=== PATIENT | male | born 1970 | race Hispanic/Latino ===

== ENCOUNTER 2020-02-05 04:15 | Inpatient (IN) | payer OTHER ==
[~2020-02-05] VITALS: Ht 167.6 cm; Wt 68.5 kg
[2020-02-05] MEDS ORDERED: SODIUM CHLORIDE 0.9% 500ML 500 ML IV ONE (04:57)
[2020-02-05 05:37] LABS: BASOPHILS % (AUTO) 1.3 % (0.0-5.0); EOSINOPHILS % (AUTO) 2.6 % (0.0-8.0); HEMATOCRIT 40.8 % (42-54); LYMPHOCYTES % (AUTO) 28.1 % (21.0-51.0); MEAN CORPUSCULAR HEMOGLOBIN 30.8 pg (27.0-33.0); MEAN CORPUSCULAR HGB CONC 32.8 g/dL (32.0-36.0); MEAN CORPUSCULAR VOLUME 93.8 fL (79-99); MONOCYTES % (AUTO) 10.3 % (3.0-13.0); NEUTROPHILS % (AUTO) 57.3 % (40.0-77.0); PLATELET COUNT (AUTO) 175 K/uL (130-400); RED BLOOD CELL COUNT(AUTO) 4.35 MIL/uL (4.50-6.20); RED CELL DISTRIBUTION WIDTH 12.3 % (11.0-15.5); WHITE BLOOD COUNT (AUTO) 5.3 K/uL (4.8-10.8)
[2020-02-05 05:46] LABS: CREATININE 1.2 mg/dL (0.5-1.5); POTASSIUM 3.6 mmol/L (3.5-5.1)
[2020-02-05 06:00] LABS: ALBUMIN 3.3 g/dL (3.5-5.0); BILIRUBIN,TOTAL 0.3 mg/dL (0.2-1.0); INR 0.94 (0.85-1.15); PARTIAL THROMBOPLASTIN TIME 28.9 SEC (26.3-35.5); PROTHROMBIN TIME 10.2 SEC (9.6-11.6)
[2020-02-05] MEDS ORDERED: M.V.I. IV [ADULT] 10 ML, THIAMINE HCL 100 MG, FOLIC ACID 1 MG in SODIUM CHLORIDE 0.9% 1... IV SCH (09:15)
[2020-02-05] MEDS ORDERED: FLUORESCEIN SODIUM 1 STRIP STRIP ONE (09:24)
[2020-02-05] MEDS ORDERED: TETRACAINE HCL 0.5% 4 ML OPHTH SOLN ONE (09:25)
[2020-02-05] MEDS ORDERED: ERYTHROMYCIN BASE 0.5% OPHTH OINT 1 GM TUBE ONE (10:00)
[2020-02-05] MEDS ORDERED: IOHEXOL-350 50ML VIAL IV ONE (10:45)
[2020-02-05] MEDS ORDERED: ZOSYN 3.375GM+NS 50ML 50 ML IV ONE (12:41)
[2020-02-05] MEDS ORDERED: ACETAMINOPHEN 325 MG TAB PO PRN ×3 (13:30→16:45)
[2020-02-05] MEDS ORDERED: NITROGLYCERIN 0.4 MG SL TAB SL PRN ×2 (13:30→16:45)
[2020-02-05] MEDS ORDERED: CHLORDIAZEPOXIDE HCL 25 MG CAP PO PRN ×2 (13:30→16:45)
[2020-02-05] MEDS ORDERED: SODIUM CHLORIDE 0.9% 1000ML 1,000 ML IV SCH ×2 (13:30)
[2020-02-05] MEDS ORDERED: ONDANSETRON HCL 4 MG/2 ML VIAL IV PRN ×4 (13:30→16:45)
[2020-02-05] MEDS ORDERED: LACTULOSE 20 GM/30 ML UDCUP PO PRN ×3 (13:30→16:45)
[2020-02-05] MEDS ORDERED: LORAZEPAM 2 MG/ML 1 ML VIAL IVP PRN ×2 (13:30→16:45)
[2020-02-05] MEDS ORDERED: PHARMACY COMMUNICATION MISC PRN ×2 (13:30→16:45)
[2020-02-05] MEDS ORDERED: TETANUS/DIPHTHERIA TOXOID [ADULT] 0.5 ML VIAL IM ONE (13:38)
[2020-02-05 13:41] LABS: PHOSPHORUS 4.4 mg/dL (2.5-4.9)
[2020-02-05] MEDS ORDERED: VANCOMYCIN 1GM+NS 250ML 250 ML IV SCH (14:15)
[2020-02-05] MEDS ORDERED: VANCOMYCIN 1GM+NS 250ML 250 ML IV ONE (14:50)
[2020-02-05] MEDS ORDERED: ERYTHROMYCIN BASE 0.5% OPHTH OINT 1 GM TUBE OU SCH (16:45)
[2020-02-05] MEDS: SODIUM CHLORIDE 0.9% 1000ML 1,000 ML IV SCH (16:45)
[2020-02-05] MEDS: THIAMINE HCL 100 MG, FOLIC ACID 1 MG, M.V.I. IV [ADULT] 10 ML in SODIUM CHLORIDE 0.9% 1... IV SCH (17:00)
[2020-02-05 18:00] VITALS: BP 143/87
[2020-02-05 20:00] VITALS: BP 129/94
[2020-02-05] MEDS: ERYTHROMYCIN BASE 0.5% OPHTH OINT 1 GM TUBE OU SCH (20:49)
[2020-02-05] MEDS ORDERED: ZOSYN 3.375GM+NS 50ML 50 ML IV SCH ×3 (21:00)
[2020-02-05] MEDS ORDERED: FAMOTIDINE 20MG TAB 20 MG TAB PO SCH ×2 (21:00)
[2020-02-06] VITALS: BP 137/92
[2020-02-06] MEDS: ERYTHROMYCIN BASE 0.5% OPHTH OINT 1 GM TUBE OU SCH ×4 (01:34→12:23)
[2020-02-06] MEDS: SODIUM CHLORIDE 0.9% 1000ML 1,000 ML IV SCH ×3 (01:34→12:23)
[2020-02-06 04:00] VITALS: BP 132/83
--- NOTE | 2020-02-06 05:27 | NUR ---
patient is alert and oriented times 2. he has been asleep all night. the first banana bag was started in the ER and finished by me ortega at midnight.
[2020-02-06] MEDS ORDERED: CEFTRIAXONE SODIUM 1 GM ONE (05:35)
[2020-02-06 06:27] LABS: BASOPHILS % (AUTO) 1.3 % (0.0-5.0); EOSINOPHILS % (AUTO) 2.9 % (0.0-8.0); HEMATOCRIT 39.3 % (42-54); LYMPHOCYTES % (AUTO) 24.2 % (21.0-51.0); MEAN CORPUSCULAR HGB CONC 32.6 g/dL (32.0-36.0); MEAN CORPUSCULAR VOLUME 95.2 fL (79-99); MONOCYTES % (AUTO) 12.2 % (3.0-13.0); PLATELET COUNT (AUTO) 158 K/uL (130-400); RED BLOOD CELL COUNT(AUTO) 4.13 MIL/uL (4.50-6.20); RED CELL DISTRIBUTION WIDTH 12.1 % (11.0-15.5); WHITE BLOOD COUNT (AUTO) 5.6 K/uL (4.8-10.8)
[2020-02-06 06:35] LABS: ALANINE AMINOTRANSFERASE 71 U/L (12-78); ALBUMIN 2.7 g/dL (3.5-5.0); ASPARTATE AMINOTRANSFERASE 115 U/L (10-37); BILIRUBIN,TOTAL 0.7 mg/dL (0.2-1.0); CARBON DIOXIDE 28 mmol/L (21-32); CHLORIDE 103 mmol/L (101-111); CREATINE KINASE, TOTAL 134 U/L (21-232); CREATININE 1.2 mg/dL (0.5-1.5); GLOMERULAR FILTR. RATE CALC 69 mL/min (>60); GLUCOSE,RANDOM 90 mg/dL (70-105); POTASSIUM 3.5 mmol/L (3.5-5.1); SODIUM SERUM 138 mmol/L (136-145); TOTAL PROTEIN, SERUM 7.9 g/dL (6.0-8.3); UREA NITROGEN, BLOOD 10 mg/dL (7-18)
[2020-02-06 06:44] LABS: ALCOHOL, BLOOD < 3 mg/dL (0-10)
[2020-02-06 08:00] VITALS: BP 133/90
[2020-02-06] MEDS ORDERED: CEFTRIAXONE SODIUM 1 GM IVP SCH (08:00)
[2020-02-06] MEDS ORDERED: ENOXAPARIN SODIUM 30 MG/0.3 ML SQ SCH ×3 (09:00)
[2020-02-06] MEDS ORDERED: THIAMINE HCL 100 MG, FOLIC ACID 1 MG, M.V.I. IV [ADULT] 10 ML in SODIUM CHLORIDE 0.9% 1... IV SCH (09:00)
[2020-02-06 11:00] VITALS: BP 127/85
--- NOTE | 2020-02-06 14:19 | NUR ---
CM NOTE/IA PATIENT DECLINED TO GIVE ME IA INFORMATION. PATIENT CORRECTED PHONE NUMBERS ON FACESHEET FOLLOWS: PATIENTS PHONE # [phone]. NEXT OF KIN, CAROLYN PAZ [phone]. GOOD RX ALONG WITH MEDICAL/SELF REFERRAL PACKETS GIVEN TO PATIENT, VERBALIZED UNDERSTANDING. Addendum: 02/06/20 at 1429 by RAMONA ZHONG RN CM Amended: Links added.
[2020-02-06 16:00] VITALS: BP 133/95
[2020-02-06] MEDS: THIAMINE HCL 100 MG, FOLIC ACID 1 MG, M.V.I. IV [ADULT] 10 ML in SODIUM CHLORIDE 0.9% 1... IV SCH (17:00)
--- NOTE | 2020-02-06 17:30 | NUR ---
PT ADMITTED WITH ETOH ENTOXICATION AND ORBITAL CELLULITIS, PT ON CIWA PROTOCOL, SCORE IS 3. PT ORIENTED TO PERSON PLACE AND TIME, STATES HE FEELS MUCH BETTER, IS REFUSING ABX OPHTHALMIC OINTMENT ORDERED, REFUSING IV FLUIDS, STATES HE WISHES TO GO HOME, EXPLAINED THE IMPORTANCE OF STAYING IN HOSPITAL AND COMPLETING THE TREATMENT, EXPRESSES NO INTEREST IN TREATMENT, STATES HE FEELS FINE AND WISHES TO GO HOME, GETTING DRESSED, INFORMEND ATTENDING DR WALLER, IV CATHETER REMOVED INTACT, NO BLEEDING, TELE REMOVED, SECURITY RETURNED BELONGINGS, ESCORTED PT TO ER EXIT.
== END 2020-02-06 17:51 | disposition left against medical advice (07) | DRG 603 ==
LOC: EDH 04:15 → EDHIP 04:16 → 4AH 18:04
PROVIDERS: ADMIT Internal Medicine; ATTEND Internal Medicine
PROC: 3E0234Z Introduction of Serum, Toxoid and Vaccine into Muscle, Percutaneous Approach (ICD-10-PCS; principal; 2020-02-05)
DX: L03.213 Periorbital cellulitis (principal); H11.32 Conjunctival hemorrhage, left eye; Z21 Asymptomatic human immunodeficiency virus [HIV] infection status; Z53.29 Procedure and treatment not carried out because of patient's decision for other reasons; Z20.828 Contact with and (suspected) exposure to other viral communicable diseases; S05.02XA Injury of conjunctiva and corneal abrasion without foreign body, left eye, initial encounter; X58.XXXA Exposure to other specified factors, initial encounter; Z23 Encounter for immunization; Y93.89 Activity, other specified; Y92.89 Other specified places as the place of occurrence of the external cause; Y99.8 Other external cause status
CPT/HCPCS: 36415; 70450; 70481; 71045; 80053; 82550; 82948; 83690; 83735; 84100; 84484; 85025; 85610; 85730; 87426; 90714; 93005; G0378; J0696; J2543; J3370; J3411; J3490; J7030; J7040; Q9967

== ENCOUNTER 2020-05-27 19:07 | Emergency (ER) | payer OTHER | END 2020-05-27 21:05 | disposition home or self-care (01) | LOC: EDH 19:07 | DX: J30.9 Allergic rhinitis, unspecified (principal); Z20.822 Contact with and (suspected) exposure to COVID-19 | CPT/HCPCS: 71045; 87426; 99284; U0003 ==